=== PATIENT | female | born 1980 ===

== ENCOUNTER → 2017-12-15 | Outpatient (REF) ==
[2017-12-15 11:16] LABS: LDL CHOLESTEROL 97 mg/dl
== END ==
DX: Z02.9 Encounter for administrative examinations, unspecified (principal)

== ENCOUNTER → 2018-06-01 | Outpatient (CLI) | payer SELFPAY ==
--- NOTE | 2018-06-01 16:40 | EKG ---
FACILITY: [facility] PATIENT NAME: PAULINO PAGE : [id number] MR: [id number]: [id number] EXAM DATE: ORDERING PHYSICIAN: ISMA MOMIN TECHNOLOGIST: JAYLIN Greene Reason : Blood Pressure : / mmHG Vent. Rate : 067 BPM Atrial Rate : 067 BPM P-R Int : 118 ms QRS Dur : 078 ms QT Int : 406 ms P-R-T Axes : 042 067 044 degrees QTc Int : 429 ms Normal sinus rhythm Normal ECG No previous ECGs available Confirmed by ISMA MOMIN ([id number]) on 06/02/2018 8:12:36 AM Referred By: LORY Confirmed By:ISMA MOMIN
== END ==
LOC: RESP 16:22
PROVIDERS: ATTEND Emergency Medicine
DX: Z02.9 Encounter for administrative examinations, unspecified (principal)

== ENCOUNTER → 2018-06-03 | Outpatient (CLI) | payer OTHER ==
[2018-06-03 09:05] LABS: PLATELET COUNT, AUTOMATED 181 K/uL (150-450)
[2018-06-03 10:36] LABS: LDL CHOLESTEROL 130 mg/dl
== END ==
LOC: LAB 08:45
PROVIDERS: ATTEND Emergency Medicine
DX: I10 Essential (primary) hypertension (principal)
CPT/HCPCS: 36415; 82040; 82247; 82306; 82310; 82374; 82435; 82465; 82565; 82607; 82947; 83036; 83718; 84075; 84132; 84155; 84295; 84443; 84450; 84460; 84478; 84520; 85025; 86140

== ENCOUNTER → 2018-06-07 | Outpatient (CLI) | payer OTHER | LOC: US 01:15 | PROVIDERS: ATTEND Emergency Medicine | DX: I34.0 Nonrheumatic mitral (valve) insufficiency (principal); I07.1 Rheumatic tricuspid insufficiency; I37.1 Nonrheumatic pulmonary valve insufficiency | CPT/HCPCS: 93306 ==